=== PATIENT | male | born 1975 | race Caucasian/White ===

== ENCOUNTER 2022-04-17 01:12 | Emergency (ER) | payer OTHER ==
[~2022-04-17] VITALS: Ht 182.9 cm; Wt 100.0 kg
[~2022-04-17 01:12] MED LIST: ALBU2SYR3 PO
[2022-04-17] MEDS ORDERED: IBUPROFEN 400MG TABLET PO ONE (01:45)
[2022-04-17] MEDS ORDERED: ACETAMINOPHEN 325MG TABLET PO ONE (01:45)
[2022-04-17] MEDS ORDERED: TOPUD PO (02:52)
[2022-04-17] MEDS ORDERED: IBUP-2028 MT (02:52)
[2022-04-17 03:08] VITALS: BP 128/79
== END 2022-04-17 03:10 ==
LOC: ER 01:12
DX: M79.18 Myalgia, other site (principal); R07.89 Other chest pain; M79.662 Pain in left lower leg; R00.0 Tachycardia, unspecified; V47.5XXA Car driver injured in collision with fixed or stationary object in traffic accident, initial encounter; Y93.89 Activity, other specified; Y92.488 Other paved roadways as the place of occurrence of the external cause; I11.0 Hypertensive heart disease with heart failure; I50.9 Heart failure, unspecified; I48.91 Unspecified atrial fibrillation; Z95.0 Presence of cardiac pacemaker
CPT/HCPCS: 71045; 73590; 93005; 99284